=== PATIENT | female | born 1965 | race Caucasian/White ===

== ENCOUNTER 2016-10-12 10:00 | Emergency (ER) | payer OTHER ==
[2016-10-12 10:07] VITALS: BP 132/82; PULSE 89; TEMP 97.9; BMI 29.2
--- NOTE | 2016-10-12 11:01 | PDOC ---
History of Present Illness - History of Present Illness Initial Comments: 10/12/16 11:22 Patient is a 50 year old female with significant medical hx of lupus, asthma, and arthritis who is presenting to the ED with heavy vaginal bleeding for two days. Patient states that she's perimenopausal and she began her menses two days ago; she cannot remember her LNMP before then. The patient reports her bleeding is so heavy that she's bled through pads into her clothing. She also notes passing clots but denies passing any tissue. The patient has saturated 5 pads within the past 24 hours. The patient's doctor wasn't available today so she decided to come to the ED. Denies fever, chills, lightheadedness, chest pain, shortness of breath, dizziness, abdominal pain, and dysuria. Denies hx of fibroids. G/P/A: 2 c-sections and 2 D&Cs <Any Cheney - Last Filed: 10/12/16 11:22> - General History Source: Patient, Old Records Exam Limitations: No Limitations <Cleo Ramires - Last Filed: 10/12/16 13:31> - General Chief Complaint: Vaginal Bleeding Stated Complaint: VAG BLEEDING Time Seen by Provider: 10/12/16 11:01 Past History <Any Cheney - Last Filed: 10/12/16 11:22> - Past Medical History Asthma: Yes HIV: No (allergies HIV meds were following an accidental needle stick at work) Suicide Attempt (Hx): No Other medical history: lupus, RA, - Surgical History Abdominal Surgery: Yes (2 D AND C) Cholecystectomy: Yes - Psycho/Social/Smoking Cessation Hx Anxiety: No Suicidal Ideation: No Smoking Status: No Smoking History: Never smoked Number of Cigarettes Smoked Daily: 0 Hx Alcohol Use: No Drug/Substance Use Hx: No Substance Use Type: None <Cleo Ramires - Last Filed: 10/12/16 13:31> - Past Medical History Allergies/Adverse Reactions: Allergies Allergy/AdvReac Type Severity Reaction Status Date / Time lamivudine [From Combivir] Allergy Verified 10/12/16 10:02 zidovudine [From Combivir] Allergy Verified 10/12/16 10:02 Home Medications: Ambulatory Orders Hydroxychloroquine Sulfate [Plaquenil] 200 mg PO DAILY 10/12/16 Review of Systems - Review of Systems Comments:: 10/12/16 11:38 GENERAL/CONSTITUTIONAL: No fever or chills. No weakness. HEAD, EYES, EARS, NOSE AND THROAT: No change in vision. No ear pain or discharge. No sore throat. CARDIOVASCULAR: No chest pain or shortness of breath. RESPIRATORY: No cough, wheezing, or hemoptysis. GASTROINTESTINAL: No nausea, vomiting, diarrhea or constipation. GENITOURINARY: Vaginal bleeding. No dysuria, frequency, or change in urination. MUSCULOSKELETAL: No joint or muscle swelling or pain. No neck or back pain. SKIN: No rash NEUROLOGIC: No headache, vertigo, loss of consciousness, or change in strength/ sensation. <Any Cheney - Last Filed: 10/12/16 11:22> *Physical Exam - Vital Signs Last Vital Signs Temp Pulse Resp BP Pulse Ox 97.9 F 89 16 132/82 97 10/12/16 10:02 10/12/16 10:02 10/12/16 10:02 10/12/16 10:02 10/12/16 10:02 - Physical Exam Comments: 10/12/16 11:40 GENERAL: Awake, alert, and fully oriented, in no acute distress HEAD: No signs of trauma EYES: PERRLA, EOMI, sclera anicteric, conjunctiva clear ENT: Auricles normal inspection, hearing grossly normal, nares patent, oropharynx clear without exudates. Moist mucosa NECK: Normal ROM, supple, no lymphadenopathy, JVD, or masses LUNGS: Breath sounds equal, clear to auscultation bilaterally. No wheezes, and no crackles HEART: Regular rate and rhythm, normal S1 and S2, no murmurs, rubs or gallops ABDOMEN: Soft, nontender, normoactive bowel sounds. No guarding, no rebound. No masses EXTREMITIES: Normal range of motion, no edema. No clubbing or cyanosis. No cords, erythema, or tenderness NEUROLOGICAL: Cranial nerves II through XII grossly intact. Normal speech, normal gait SKIN: Warm, Dry, normal turgor, no rashes or lesions noted. ENDOCRINE: No increased thirst. No abnormal weight change. HEMATOLOGIC/LYMPHATIC: No anemia, easy bleeding, or history of blood clots. ALLERGIC/IMMUNOLOGIC: No hives or skin allergy. PELVIC: Os is visualized and appears to be closed, minimal amount of blood in the vaginal vault. <Any Cheney - Last Filed: 10/12/16 11:22> - Vital Signs Last Vital Signs Temp Pulse Resp BP Pulse Ox 97.9 F 89 16 132/82 97 10/12/16 10:02 10/12/16 10:02 10/12/16 10:02 10/12/16 10:02 10/12/16 10:02 <Cleo Ramires - Last Filed: 10/12/16 13:31> ED Treatment Course - LABORATORY CBC & Chemistry Diagram: 10/12/16 12:20 10/12/16 12:20 <Cleo Ramires - Last Filed: 10/12/16 13:31> Medical Decision Making - Medical Decision Making 10/12/16 11:54 50-year-old perimenopausal female with heavy periods history of lupus and asthma who presents to the emergency Department with complaints of heavy vaginal bleeding since last night. She has no pain and denies chest pain, dizziness, shortness of breath, palpitations. Differential diagnosis includes but is not limited to: Menorrhagia, dysfunctional uterine bleeding, anemia, . Plan: 1. CBCs/labs 2. Urine 3. Observe and reevaluate 4. If her hemoglobin is stable and she is not we'll refer her to follow -up with her outpatient [facility] physician within one to 3 days and return to the emergency department if symptoms persist, worsen, or new symptoms arise. 10/12/16 13:29 Addendum: Hemoglobin is 14.1 and the serum test is negative. We'll discharge home. Follow-up with [facility] within one to 3 days. <Cleo Ramires - Last Filed: 10/12/16 13:31> *DC/Admit/Observation/Transfer - Attestations Scribe Attestion: 10/12/16 11:43 Documentation prepared by Any Cheney, acting as medical device sales for Cleo Ramires MD. <Any Cheney - Last Filed: 10/12/16 11:22> - Discharge Dispostion Admit: No - Attestations Physician Attestion: 10/12/16 11:55 I, Dr. Cleo Ramires, attest that the scribes documentation that appears above has been prepared under my direction and personally reviewed by me in its entirety. I confirmed that the note above accurately reflects all work, treatment, procedures, and medical decision-making performed by me. <Cleo Ramires - Last Filed: 10/12/16 13:31> Diagnosis at time of Disposition: DUB (dysfunctional uterine bleeding) - Discharge Dispostion Disposition: HOME Condition at time of disposition: Stable - Referrals Referrals: Parag Solis [Primary Care Provider] - - Patient Instructions Printed Discharge Instructions: DI for Vaginal Bleeding Additional Instructions: Follow-up with your swaging machine adjuster within 1-3 days. Return to the ED if your symptoms persist, worsen or new symptoms arise.
[2016-10-12 12:31] LABS: BASOPHIL 0.5 % (0-2.0); EOSINOPHIL 1.6 % (0-4.5); MCH 32.7 pg (25.7-33.7); MCHC 35.2 g/dl (32.0-36.0); MEAN CELL VOLUME 92.8 fl (80-96); MEAN PLT VOLUME 9.6 fl (7.5-11.1); NEUTROPHILS 67.6 % (42.8-82.8); PLATELET COUNT 158 K/MM3 (134-434); RDW 13.2 % (11.6-15.6); WHITE BLOOD COUNT 8.6 K/mm3 (4.0-10.0)
[2016-10-12 12:44] LABS: CREATININE 0.5 mg/dL (0.55-1.02); MAGNESIUM 1.9 mg/dL (1.8-2.4); PHOSPHOROUS 3.1 mg/dL (2.5-4.9)
== END 2016-10-12 13:52 | disposition home or self-care (01) ==
LOC: JER 10:00
PROC: 3E0233Z Introduction of Anti-inflammatory into Muscle, Percutaneous Approach (ICD-10-PCS; principal; 2016-10-12)
DX: M54.5 Low back pain (principal); L93.0 Discoid lupus erythematosus; J45.909 Unspecified asthma, uncomplicated
CPT/HCPCS: 36415; 80048; 83735; 84100; 84703; 85025; 99282-25

== ENCOUNTER 2024-01-07 14:30 | Emergency (ER) | payer BC ==
[2024-01-07 14:39] VITALS: BP 132/82; PULSE 92; RESP 18; BMI 29.7
== END 2024-01-07 16:19 | disposition home or self-care (01) ==
LOC: JERFT 14:30
DX: S81.052A Open bite, left knee, initial encounter (principal); W54.0XXA Bitten by dog, initial encounter
CPT/HCPCS: 99283-25